=== PATIENT | female | born 1965 | race Caucasian/White ===

== ENCOUNTER → 2017-11-08 | Outpatient (CLI) | payer OTHER ==
[~2017-11-08] VITALS: Ht 170.2 cm; Wt 111.1 kg
[~2017-11-08] MED LIST: ADVIL PM CAPLE1 EACH PO; ATENOLOL 100MG100 MG PO; CELEBREX 200 M200 MG PO; COZAAR100 MG PO; DARVOCET-N 1001 EAC1 PO; DIOVAN160 MG PO; ESTRACE2 MG PO; GLUCOPHAGE500 MG PO; IBUPROFEN 200200 M1 PO; KEFLEX500 MG PO; NEURONTIN 300300 M1 PO
--- NOTE | ~2017-11-08 | P ---
[facility] [place] [address] PROCEDURE REPORT Name: BRENDAGAIL Chico [id number] Admission: 11/08/17 Attend Phys: Andrez Beal Discharge: Date of : 63 Report #: [id number] THIS REPORT FOR: //name// CC: Andrez Mendoza MD DATE OF SERVICE: 11/08/2017 PROCEDURE PERFORMED: Colonoscopy with polypectomies. HISTORY OF PRESENT ILLNESS: The patient is a 52-year-old female who presents today for routine screening colonoscopy. No previous history of endoscopy. No family history of colon cancer. The patient denies any symptoms. DESCRIPTION OF PROCEDURE: The risks and benefits of the procedure were explained to the patient and those risks including but not limited to bleeding, perforation, the risk of sedation. She understood these risks and gave informed consent. Sedation was given using propofol per anesthesia. Next, a digital rectal exam was initially performed, which was normal. Next, using a standard Fujinon colonoscope, the scope was placed in the patient's anus and advanced under direct vision to the cecum. The overall prep was excellent. The cecum and ileocecal valve were normal in appearance. The ascending and transverse colon were normal. In the descending colon, there were 2 polyps, the larger one was 6 mm and the smaller was 4 and both removed by snare cautery. The sigmoid colon was normal. In the rectum, a 3 mm sessile polyp was noted and this was removed with cold forceps, otherwise normal. The scope was then withdrawn and the procedure terminated. The patient tolerated the procedure well. IMPRESSION: 1. Three colonic polyps. 2. Otherwise, normal colonoscopy. RECOMMENDATIONS: 1. Await biopsy results. 2. Repeat colonoscopy in 5 years. Thank you for allowing me to participate in her care. <ELECTRONICALLY SIGNED> By: Andrez Sargent MD 11/15/17 [id number] Andrez Sargent MD /nt
--- NOTE | ~2017-11-08 | S ---
[facility] [place] [facility] [place] [address] SURGICAL PATH RPT PROCEDURE Name: SOFY GUTIERREZ Room #: REG [facility].#: [id number] Admission: 11/08/17 Date of : 63 Discharge: Report #: [id number] Path Case #: [id number] PATHOLOGY REPORT COLLECTION DATE: 11/08/2017 RECEIVED DATE: 11/08/2017 SUBMITTING PHYS: Dr. Andrez Sargent OTHER PHYS: Dr. Tim Mendoza SPECIMEN(S) RECEIVED: A.Descending colon polyp x2 B.Rectal polyp bx * * * * * * * * * * * * FINAL DIAGNOSIS: A. "Descending colon polyp x2", biopsy: - Tubular adenoma; no high-grade dysplasia. B. "Rectal polyp BX", biopsy: - Hyperplastic polyp. (CLW:keila; 11/11/2017) PATHOLOGIST: Cindy Garcia M.D. REPORT ELECTRONICALLY SIGNED BY: Cindy Garcia M.D. DATE/TIME: 11/11/2017 15:58 * * * * * * * * * * * * GROSS PATHOLOGY: A. Received in formalin labeled "Sofy Gutierrez, descending colon polypectomy 2," are two segments of child soft tissue measuring 0.7 x 0.5 x 0.2 cm in aggregate dimensions and ranging from 0.3 to 0.5 cm in maximum dimension. The specimen is submitted entirely in cassette A1. B. Received in formalin labeled "Sofy Gutierrez, rectal polyp biopsy," are two segments of child soft tissue measuring 0.5 x 0.5 x 0.1 cm in aggregate dimensions and ranging from 0.2 to 0.5 cm in maximum dimension. The specimen is submitted entirely in cassette B1. (CAA; 11/08/2017) CLINICAL HISTORY: Pre-op diagnosis: Screening Post-op diagnosis: Colon polyps INITIAL CPT CODE(S): A; 88011 B; 30106 [facility] [place] [address] SURGICAL PATH RPT PROCEDURE Name: SOFY GUTIERREZ Room #: REG [facility].#: [id number] Admission: 11/08/17 Date of : 63 Discharge: Report #: [id number] Path Case #: [id number] Professional services performed by [facility] at [address] , [place] [address] Technical services performed by [facility] at [address] [place] [address], [facility] [address], [place] [address]. [facility] [address] [place] [address] PHONE: [phone] DIRECTOR: Sesar Taylor M.D. * * * END OF REPORT * * *
== END | disposition home or self-care (01) ==
LOC: GI 07:31
DX: Z12.11 Encounter for screening for malignant neoplasm of colon (principal); D12.4 Benign neoplasm of descending colon; K63.5 Polyp of colon; I10 Essential (primary) hypertension; Z90.49 Acquired absence of other specified parts of digestive tract; Z90.710 Acquired absence of both cervix and uterus; Z98.890 Other specified postprocedural states; Z79.899 Other long term (current) drug therapy; Z96.641 Presence of right artificial hip joint; Z87.440 Personal history of urinary (tract) infections
CPT/HCPCS: 62110; 62900

== ENCOUNTER → 2018-12-16 | Outpatient (CLI) | payer OTHER | LOC: CAT 11:42 | DX: Z13.6 Encounter for screening for cardiovascular disorders (principal); E78.00 Pure hypercholesterolemia, unspecified; I25.10 Atherosclerotic heart disease of native coronary artery without angina pectoris ==